=== PATIENT | male | born 1960 | race Hispanic/Latino ===

== ENCOUNTER 2020-07-11 03:48 | Observation (INO) | payer OTHER ==
[~2020-07-11] VITALS: Ht 162.6 cm; Wt 98.5 kg
[~2020-07-11 03:48] MED LIST: MVIT PO
[2020-07-11 04:11] LABS: BASOPHILS % (AUTO) 0.5 % (0.0-5.0); EOSINOPHILS % (AUTO) 2.2 % (0.0-8.0); HEMATOCRIT 42.6 % (42-54); LYMPHOCYTES % (AUTO) 40.3 % (21.0-51.0); MEAN CORPUSCULAR HGB CONC 34.7 g/dL (32.0-36.0); MEAN CORPUSCULAR VOLUME 89.3 fL (79-99); MONOCYTES % (AUTO) 6.9 % (3.0-13.0); PLATELET COUNT (AUTO) 245 K/uL (130-400); RED BLOOD CELL COUNT(AUTO) 4.77 MIL/uL (4.50-6.20); WHITE BLOOD COUNT (AUTO) 7.4 K/uL (4.8-10.8)
[2020-07-11] MEDS ORDERED: PROCHLORPERAZINE EDISYLATE 10 MG/2 ML VIAL ONE (04:22)
[2020-07-11] MEDS ORDERED: SODIUM CHLORIDE 0.9% 50 ML IV ONE (04:23)
[2020-07-11 04:27] LABS: ALBUMIN 3.4 g/dL (3.5-5.0); BILIRUBIN,TOTAL 0.4 mg/dL (0.2-1.0); POTASSIUM 3.3 mmol/L (3.5-5.1); TOTAL PROTEIN, SERUM 6.9 g/dL (6.0-8.3)
[2020-07-11] MEDS ORDERED: ASPIRIN 325 MG TABLET ONE (04:49)
[2020-07-11 05:02] LABS: INR 1.02 (0.85-1.15); PROTHROMBIN TIME 11.1 SEC (9.6-11.6)
[2020-07-11 05:04] LABS: PARTIAL THROMBOPLASTIN TIME 26.5 SEC (26.3-35.5)
[2020-07-11] MEDS ORDERED: POTASSIUM CHLORIDE 20 MEQ ERTAB PO ONE (05:35)
[2020-07-11] MEDS ORDERED: GUAIFENESIN-DM 200/20 MG 10 ML PO PRN (05:45)
[2020-07-11] MEDS ORDERED: POTASSIUM CHLORIDE 20MEQ/100ML 100 ML IV PRN (05:45)
[2020-07-11] MEDS ORDERED: DiphenhydrAMINE HCL 50 MG/ML VIAL IV PRN (05:45)
[2020-07-11] MEDS ORDERED: POTASSIUM CHLORIDE 20 MEQ ERTAB PO PRN (05:45)
[2020-07-11] MEDS ORDERED: NITROGLYCERIN 0.4 MG SL TAB SL PRN (05:45)
[2020-07-11] MEDS ORDERED: DIPHENHYDRAMINE HCL 25 MG CAPSULE PO PRN (05:45)
[2020-07-11] MEDS ORDERED: MAGNESIUM 2GM PREMIX 50ML 50 ML IV PRN (05:45)
[2020-07-11] MEDS ORDERED: ONDANSETRON HCL 4 MG/2 ML VIAL IV PRN (05:45)
[2020-07-11] MEDS ORDERED: LACTULOSE 20 GM/30 ML UDCUP PO PRN (05:45)
[2020-07-11] MEDS ORDERED: POTASSIUM CHLORIDE 10% ELIXIR 20 MEQ/15 ML UDCUP PO PRN (05:45)
[2020-07-11] MEDS ORDERED: MORPHINE SULFATE 4 MG/1ML SYG IV PRN (05:45)
[2020-07-11] MEDS ORDERED: ACETAMINOPHEN 325 MG TAB PO PRN ×2 (05:45)
[2020-07-11] MEDS ORDERED: MAG HYDROX/AL HYDROX/SIMETH ES 30 ML SUSP UDCUP PO PRN (05:45)
[2020-07-11] MEDS ORDERED: ACETAMINOPHEN-CODEINE 300/30MG TAB PO PRN (05:45)
[2020-07-11] MEDS ORDERED: LIDOCAINE HCL-MPF 1% 2ML VIAL IV PRN (05:45)
[2020-07-11] MEDS ORDERED: HYDRALAZINE HCL 20 MG/ML VIAL IV PRN (05:45)
[2020-07-11] MEDS ORDERED: ZOLPIDEM TARTRATE 5 MG TAB PO PRN (05:45)
[2020-07-11 08:19] LABS: APPEARANCE,URINE Clear (CLEAR); BILIRUBIN,URINE Negative (NEGATIVE); COLOR,URINE Yellow (YELLOW); GLUCOSE, URINE (UA) Negative (NEGATIVE); KETONES,URINE Negative (NEGATIVE); LEUKOCYTE ESTERASE ,URINE Negative (NEGATIVE); NITRATE,URINE Negative (NEGATIVE); OCCULT BLOOD,URINE Negative (NEGATIVE); PH,URINE 7.5 (5.0-8.0); PROTEIN,URINE Negative (NEGATIVE); UROBILINOGEN,URINE 0.2 mg/dL (0.2-1.0)
[2020-07-11 08:39] LABS: BACTERIA,URINE None Seen /HPF (None Seen); RBC,URINE 0-1 /HPF (0-1); SQUAMOUS EPITHELIAL CELL,UR 0-2 /HPF (0-2); WBC,URINE 0-1 /HPF (0-1)
[2020-07-11] MEDS ORDERED: FAMOTIDINE 20MG TAB 20 MG TAB ONE (08:46)
[2020-07-11] MEDS ORDERED: HEPARIN SODIUM 5000UNIT/ML 1ML VIAL ONE ×2 (08:47→17:05)
[2020-07-11] MEDS: FAMOTIDINE 20MG TAB 20 MG TAB PO SCH ×2 (09:00→21:39)
[2020-07-11] MEDS: HEPARIN SODIUM 5000UNIT/ML 1ML VIAL SQ SCH ×2 (14:00→21:43)
[2020-07-11 19:06] VITALS: BP 131/72
[2020-07-11 19:27] VITALS: BP 153/72
[2020-07-11] MEDS ORDERED: ATORVASTATIN CALCIUM 40 MG TABLET PO SCH (21:00)
[2020-07-11] MEDS ORDERED: HYDR12.54 PO (22:07)
[2020-07-11 23:58] VITALS: BP 164/70
[2020-07-12 02:14] VITALS: BP 161/86
[2020-07-12 02:15] VITALS: BP 161/86
[2020-07-12 04:12] VITALS: BP 161/86
[2020-07-12] MEDS: HEPARIN SODIUM 5000UNIT/ML 1ML VIAL SQ SCH (06:06)
[2020-07-12 06:10] LABS: BASOPHILS % (AUTO) 0.5 % (0.0-5.0); EOSINOPHILS % (AUTO) 3.2 % (0.0-8.0); HEMATOCRIT 41.5 % (42-54); LYMPHOCYTES % (AUTO) 46.9 % (21.0-51.0); MEAN CORPUSCULAR HEMOGLOBIN 30.8 pg (27.0-33.0); MEAN CORPUSCULAR HGB CONC 34.5 g/dL (32.0-36.0); MEAN CORPUSCULAR VOLUME 89.4 fL (79-99); MONOCYTES % (AUTO) 7.5 % (3.0-13.0); NEUTROPHILS % (AUTO) 41.1 % (40.0-77.0); PLATELET COUNT (AUTO) 228 K/uL (130-400); RED BLOOD CELL COUNT(AUTO) 4.64 MIL/uL (4.50-6.20); RED CELL DISTRIBUTION WIDTH 13.2 % (11.0-15.5); WHITE BLOOD COUNT (AUTO) 6.2 K/uL (4.8-10.8)
[2020-07-12 06:22] LABS: HEMOGLOBIN A1C 5.9 % (4.0-6.0)
[2020-07-12 06:32] LABS: B-TYPE NATRIURETIC PEPTIDE 103 pg/mL (0-100)
[2020-07-12 06:34] LABS: ALANINE AMINOTRANSFERASE 31 U/L (12-78); AMMONIA < 3 umol/L (11-32); ASPARTATE AMINOTRANSFERASE 20 U/L (10-37); BILIRUBIN,TOTAL 0.4 mg/dL (0.2-1.0); CARBON DIOXIDE 30 mmol/L (21-32); CHLORIDE 109 mmol/L (101-111); CHOLESTEROL 198 mg/dL (<200); GLOMERULAR FILTR. RATE CALC 80 mL/min (>60); GLUCOSE,RANDOM 111 mg/dL (70-105); HDL CHOLESTEROL 52 mg/dL (29-71); LDL DIRECT 123 mg/dL (0-99); POTASSIUM 4.2 mmol/L (3.5-5.1); SODIUM SERUM 144 mmol/L (136-145); THYROID STIMULATING HORMONE 2.34 uIU/mL (0.36-3.74); TOTAL PROTEIN, SERUM 6.2 g/dL (6.0-8.3); TRIGLYCERIDES 140 mg/dL (30-200); UREA NITROGEN, BLOOD 13 mg/dL (7-18)
[2020-07-12 08:07] VITALS: BP 152/77
[2020-07-12] MEDS: FAMOTIDINE 20MG TAB 20 MG TAB PO SCH (08:34)
[2020-07-12] MEDS ORDERED: ASPIRIN 81MG TAB.CHEW PO SCH (09:00)
[2020-07-12] MEDS ORDERED: LOSARTAN 50 MG TABLET PO SCH (10:00)
[2020-07-12] MEDS ORDERED: ASPI-1005 PO (10:03)
[2020-07-12] MEDS ORDERED: LOSA50TA64 PO (10:03)
[2020-07-12] MEDS ORDERED: MECL-160 PO (10:03)
[2020-07-12 12:05] VITALS: BP 148/73
[2020-07-13] MEDS ORDERED: LOSARTAN 50 MG TABLET PO SCH ×2 (09:00)
== END 2020-07-12 12:04 | disposition home or self-care (01) ==
LOC: EDH 03:48 → EDHIP 05:36 → 4DH 18:51 → 2AH 07-12 00:32
PROVIDERS: ADMIT Internal Medicine; ATTEND Internal Medicine
DX: U07.1 COVID-19 (principal); I16.0 Hypertensive urgency; R11.2 Nausea with vomiting, unspecified; R55 Syncope and collapse; R77.8 Other specified abnormalities of plasma proteins; E87.6 Hypokalemia; I10 Essential (primary) hypertension; E78.5 Hyperlipidemia, unspecified; E66.9 Obesity, unspecified; E78.00 Pure hypercholesterolemia, unspecified; F17.200 Nicotine dependence, unspecified, uncomplicated; Z79.82 Long term (current) use of aspirin; Z79.899 Other long term (current) drug therapy; Z88.1 Allergy status to other antibiotic agents; Z68.37 Body mass index [BMI] 37.0-37.9, adult
CPT/HCPCS: 36415 ×2; 70450; 70544; 70551; 71045; 80053 ×2; 80061; 81001; 82140; 82948; 83036; 83735; 83880 ×2; 84439; 84443; 84484 ×3; 85025 ×2; 85378; 85610; 85730; 87426; 93005; 93880; 96372 ×2; 99285; G0378 ×29; J0780; J1644 ×4; U0003

== ENCOUNTER → 2023-11-16 | Outpatient (CLI) | payer OTHER ==
[~2023-11-16] MED LIST changes: +ASPI-1005 PO; +LOSA50TA64 PO; +MECL-302 PO
== END | disposition home or self-care (01) ==
LOC: RAH 14:48
PROVIDERS: ATTEND Family Medicine
DX: Z13.6 Encounter for screening for cardiovascular disorders (principal)
CPT/HCPCS: 75571